=== PATIENT | male | born 1990 | race Caucasian/White ===

== ENCOUNTER 2018-12-07 08:29 | Emergency (ER) | payer BC ==
[2018-12-07 08:33] VITALS: BP 141/84; PULSE 75; RESP 16; TEMP 97.8
[2018-12-07] MEDS ORDERED: DIAZEPAM 5 MG/ML 2 ML INJ IM ONE (08:59)
[2018-12-07] MEDS ORDERED: KETOROLAC 60 MG/2 ML VIAL IM STA (08:59)
--- NOTE | 2018-12-07 09:04 | ED ---
General Adult HPI - General Chief complaint: Back Pain/Injury Stated complaint: back pain Time Seen by Provider: 12/07/18 08:30 Source: patient, RN notes reviewed Mode of arrival: ambulatory Limitations: no limitations - History of Present Illness Initial comments: This is a 28-year-old male who comes in complaining of lower back pain. Patient states last night he was bouncing and cramping was on any landed felt a little pressure in the lower back and states that now occasionally he has some tingling in the right medial thigh. Patient states it got worse overnight because he went to bed and it hurt a little but when he went to get up this morning he was unable to get up without some assistance. Patient states he has no actual numbness and no weakness. Patient denies any urinary issues or bowel issues. Patient states he has not had previous back problems. Patient did not take any medications prior to arrival. Patient states movement definitely worsens the symptoms. In particular bending or twisting. - Related Data Previous Rx's Medication Instructions Recorded Cyclobenzaprine [Flexeril] 10 mg PO TID #20 tab 12/07/18 Ibuprofen [Motrin] 600 mg PO Q6HR PRN #20 tab 12/07/18 Allergies Allergy/AdvReac Type Severity Reaction Status Date / Time No Known Allergies Allergy Verified 12/07/18 08:33 Review of Systems ROS Statement: Those systems with pertinent positive or pertinent negative responses have been documented in the HPI. ROS Other: All systems not noted in ROS Statement are negative. Past Medical History Past Medical History: No Reported History History of Any Multi-Drug Resistant Organisms: None Reported Past Surgical History: No Surgical Hx Reported Past Psychological History: No Psychological Hx Reported Smoking Status: Current every day smoker Past Alcohol Use History: Occasional Past Drug Use History: None Reported General Exam - General Exam Comments Initial Comments: GENERAL Patient is well-developed and well-nourished. Patient is in mild distress. EYES Patient's pupils are equal and round. Extraocular motion is intact SKIN Unremarkable NEURO The patient is alert and oriented 3 PYSCH Patient has normal interpersonal interactions. MUSCULOSKELETAL Patient has full range of motion of both extremities however straight leg test on the left leg does cause pain in his back at about 45. Palpating the back did not cause any significant pain. Perineum exam had normal sensation Limitations: no limitations Course Vital Signs 12/07/18 08:31 Temperature 97.8 F Pulse Rate 75 Respiratory 16 Rate Blood Pressure 141/84 O2 Sat by Pulse 98 Oximetry Medical Decision Making - Medical Decision Making I went back into the room the patient stated he was feeling considerably better he was able to ambulate around the ER without assistance. Disposition Clinical Impression: Strain of lumbar region Disposition: HOME SELF-CARE Condition: Good Instructions (If sedation given, give patient instructions): Low Back Strain (ED) Prescriptions: Cyclobenzaprine [Flexeril] 10 mg PO TID #20 tab Ibuprofen [Motrin] 600 mg PO Q6HR PRN #20 tab PRN Reason: For pain Is patient prescribed a controlled substance at d/c from ED?: No Referrals: None,Stated [Primary Care Provider] - 1-2 days Time of Disposition: 10:01
--- NOTE | 2018-12-07 09:38 | XR ---
EXAM TYPE: LUMBAR SPINE X RAY SERIES COMPARISON: NONE HISTORY: Pain TECHNIQUE: 4 views are submitted. FINDINGS: Alignment is anatomic. The pedicles are intact. The transverse processes are intact. There is no s pondylolysis or spondylolisthesis. No compression deformities. Sclerosis involving the SI joints. IMPRESSION: 1. Correlate for sacroiliitis..
== END 2018-12-07 10:40 | disposition home or self-care (01) ==
LOC: EC 08:29
DX: S39.012A Strain of muscle, fascia and tendon of lower back, initial encounter (principal); F17.200 Nicotine dependence, unspecified, uncomplicated; X58.XXXA Exposure to other specified factors, initial encounter
CPT/HCPCS: 72110; 99283; 96372 ×2; J3360; J1885

== ENCOUNTER 2024-04-26 08:26 | Emergency (ER) | payer BC, OTHER ==
[2024-04-26 08:47] VITALS: RESP 18
[2024-04-26] MEDS: CYCLOBENZAPRINE 10MG STARTER 3 TAB BTL PO STA (09:01)
[2024-04-26] MEDS: KETOROLAC 15 MG/ML 1 ML VIAL IM STA (09:01)
--- NOTE | 2024-04-26 09:03 | ED ---
General Adult HPI - General Chief complaint: Back Pain/Injury Stated complaint: Back pain Time Seen by Provider: 04/26/24 08:48 Source: patient, RN notes reviewed Mode of arrival: ambulatory Limitations: no limitations - History of Present Illness Initial comments: Patient is a 33-year-old male present to the emergency department with concerns with back pain. Symptoms started yesterday while lifting a 2 x 4 at home. Patient has discomfort of his lower back with slight radiation towards right lower leg. Discomfort is 3/10 at rest but severe with standing up and moving. No incontinence or retention of bowel or bladder. No abdominal pain. No weakness. No loss of sensation. Patient does have history of similar symptoms once years ago. - Related Data Previous Rx's Medication Instructions Recorded Cyclobenzaprine [Flexeril] 10 mg PO TID #20 tab 12/07/18 Ibuprofen [Motrin] 600 mg PO Q6HR PRN #20 tab 12/07/18 Cyclobenzaprine [Flexeril] 10 mg PO TID PRN #12 tablet 04/26/24 Ibuprofen [Motrin] 600 mg PO Q6HR PRN #20 tab 04/26/24 Allergies Allergy/AdvReac Type Severity Reaction Status Date / Time No Known Allergies Allergy Verified 04/26/24 08:47 Review of Systems ROS Statement: Those systems with pertinent positive or pertinent negative responses have been documented in the HPI. ROS Other: All systems not noted in ROS Statement are negative. Constitutional: Denies: fever Eyes: Denies: eye pain ENT: Denies: ear pain Respiratory: Denies: cough Cardiovascular: Denies: chest pain Gastrointestinal: Denies: abdominal pain Musculoskeletal: Reports: as per HPI, back pain Neurological: Denies: weakness Past Medical History Past Medical History: No Reported History History of Any Multi-Drug Resistant Organisms: None Reported Past Surgical History: No Surgical Hx Reported Past Psychological History: No Psychological Hx Reported Smoking Status: Current every day smoker Past Alcohol Use History: Occasional Past Drug Use History: None Reported General Exam Limitations: no limitations General appearance: alert, in no apparent distress Head exam: Present: normocephalic Eye exam: Present: normal appearance Neck exam: Present: normal inspection Respiratory exam: Present: normal lung sounds bilaterally Cardiovascular Exam: Present: regular rate, normal rhythm Expanded Peripheral pulses: 2+: Posterior Tibialis (R), Posterior Tibialis (L) GI/Abdominal exam: Present: soft. Absent: tenderness Extremities exam: Present: normal inspection, full ROM. Absent: tenderness Back exam: Present: tenderness (Minimal tenderness lower lumbar) Neurological exam: Present: alert. Absent: motor sensory deficit Expanded Speech: Present: fluid speech Sensory exam: Lower Extremity Light Touch: Normal Motor strength exam: RLE: 5, LLE: 5 Psychiatric exam: Present: normal affect, normal mood Skin exam: Present: normal color Course Vital Signs 04/26/24 08:45 Temperature 97.8 F Pulse Rate 66 Respiratory 18 Rate Blood Pressure 133/74 Medical Decision Making - Medical Decision Making Was pt. sent in by a medical professional or institution (, PA, CLINICAL STAFF RN, urgent care, hospital, or longterm...) When possible be specific @ -No Did you speak to anyone other than the patient for history (EMS, parent, family, police, friend...)? What history was obtained from this source @ -No Did you review nursing and triage notes (agree or disagree)? Why? @ -I reviewed and agree with nursing and triage notes Were old charts reviewed (outside hosp., previous admission, EMS record, old EKG, old radiological studies, urgent care reports/EKG's, longterm records)? Report findings @ -Previous visit reviewed Differential Diagnosis (chest pain, altered mental status, abdominal pain women, abdominal pain men, vaginal bleeding, weakness, fever, dyspnea, syncope, headache, dizziness, GI bleed, back pain, seizure, CVA, palpatations, mental health, musculoskeletal)? @ -Differential Back Pain: Strain, zoster, cauda equina syndrome, epidural abscess, vertebral osteomyelitis, discitis, fracture, subluxation, disc herniation, DJD, spinal stenosis, dissection, AAA, pancreatitis, peptic ulcer disease, pyelonephritis, kidney stone, this is not meant to be an all-inclusive list. EKG interpreted by me (3pts min.). @ -As above X-rays interpreted by me (1pt min.). @ -None done CT interpreted by me (1pt min.). @ -None done U/S interpreted by me (1pt. min.). @ -None done What testing was considered but not performed or refused? (CT, X-rays, U/S, labs)? Why? @ -Considered imaging however patient has no red flag What meds were considered but not given or refused? Why? @ -None Did you discuss the management of the patient with other professionals (professionals i.e. , PA, CLINICAL STAFF RN, lab, RT, psych nurse, web content & social media manager, packing and stamping machine operator, teacher, chief lifestyle officer, case management specialist)? Give summary @ -No Was smoking cessation discussed for >3mins.? @ -No Was critical care preformed (if so, how long)? @ -No Were there social determinants of health that impacted care today? How? (Homelessness, low income, unemployed, alcoholism, drug addiction, transportation, low edu. Level, literacy, decrease access to med. care, [facility], rehab)? @ -No Was there de-escalation of care discussed even if they declined (Discuss DNR or withdrawal of care, Hospice)? DNR status @ -No What co-morbidities impacted this encounter? (DM, HTN, Smoking, COPD, CAD, Cancer, CVA, ARF, Chemo, Hep., AIDS, mental health diagnosis, sleep apnea, morbid obesity)? @ -History of similar episode once previously Was patient admitted / discharged? Hospital course, mention meds given and route, prescriptions, significant lab abnormalities, going to OR and other pertinent info. @ -Patient presents with lower back pain after straining and lifting. Discomfort and exam/history consistent with typical back pain. No red flags. No incontinence or retention. No weakness. Patient will be discharged with muscle relaxers and recommend follow-up. Undiagnosed new problem with uncertain prognosis? @ -No Drug Therapy requiring intensive monitoring for toxicity (Heparin, Nitro, Insulin, Cardizem)? @ -No Were any procedures done? @ -No Diagnosis/symptom? @ -Low back pain Acute, or Chronic, or Acute on Chronic? @ -Acute Uncomplicated (without systemic symptoms) or Complicated (systemic symptoms)? @ -Default Side effects of treatment? @ -No Exacerbation, Progression, or Severe Exacerbation? @ -No Poses a threat to life or bodily function? How? (Chest pain, [place], [place], pneumonia, PE, COPD, DKA, ARF, appy, cholecystitis, CVA, Diverticulitis, Homicidal, Suicidal, threat to staff... and all critical care pts) @ -No Disposition Clinical Impression: Low back pain Disposition: HOME SELF-CARE Condition: Stable Instructions (If sedation given, give patient instructions): Acute Low Back Pain (ED) Additional Instructions: Prescription sent to pharmacy. Please follow-up with your primary care physician in the next couple of days for recheck. Ice to affected area. Consider [id number] lidocaine patches. Return for increased pain, weakness, loss of control of bowel or bladder, fever, worsening symptoms or any other concerns. Prescriptions: Cyclobenzaprine [Flexeril] 10 mg PO TID PRN #12 tablet PRN Reason: Pain Ibuprofen [Motrin] 600 mg PO Q6HR PRN #20 tab PRN Reason: Pain Is patient prescribed a controlled substance at d/c from ED?: No Referrals: Sai Lundberg MD [STAFF PHYSICIAN] - 1-2 days Forms: Area PCPs Time of Disposition: 09:02
[2024-04-26 09:17] VITALS: BP 126/76; PULSE 68; TEMP 98.1
== END 2024-04-26 09:09 | disposition home or self-care (01) ==
LOC: EC 08:26
DX: M54.50 Low back pain, unspecified (principal); F17.200 Nicotine dependence, unspecified, uncomplicated
CPT/HCPCS: 99283; 96372; J1885

== ENCOUNTER → 2024-07-03 | Outpatient (CLI) | payer OTHER ==
--- NOTE | 2024-07-03 18:02 | XR ---
EXAMINATION TYPE: XR ribs bilateral DATE OF EXAM: 07/03/2024 5:19 PM INDICATION: Patient age:Male; 33 years old; Reason for study: S23.41XA SPRAIN OF RIBS, INITIAL ENCO M54.6 M54.50; PHH. pain COMPARISON: None TECHNIQUE: Frontal and oblique views of the bilateral ribs. FINDINGS: The ribs have a normal appearance. No evidence of fracture. Overall, the lungs are clear. The cardiac silhouette is normal in size. The remaining osseous structures are intact. IMPRESSION: No acute osseous pathology. [facility], , 07/03/2024 6:00 PM
--- NOTE | 2024-07-03 18:04 | XR ---
EXAMINATION TYPE: XR lumbar spine 2 or 3V, XR thoracic spine complete DATE OF EXAM: 07/03/2024 CLINICAL HISTORY: pain TECHNIQUE: The thoracic spine was evaluated in frontal and lateral views which reduce projection. The lumbar spine was evaluated in frontal and lateral views with coned down lateral L5-S1 view. COMPARISON: None. FINDINGS: There are 6 lumbar type vertebral bodies identified. Satisfactory alignment of the thoracolumbar spin e without evidence of acute fracture or dislocation. Vertebral body heights are within normal limits. Disc spaces are within normal limits. The overlying soft tissue appears unremarkable. The visuali zed chest is unremarkable. IMPRESSION: No acute fracture. [facility], , 07/03/2024 6:02 PM
== END | disposition home or self-care (01) ==
LOC: RADXRMAIN 16:50
PROVIDERS: ATTEND Family Medicine
DX: S23.41XA Sprain of ribs, initial encounter (principal); M54.6 Pain in thoracic spine; M54.50 Low back pain, unspecified; X58.XXXA Exposure to other specified factors, initial encounter
CPT/HCPCS: 71110; 72072; 72100